=== PATIENT | male | born 1950 | race Caucasian/White ===

== ENCOUNTER → 2025-03-28 10:47 | Outpatient (REF) | payer OTHER, SELFPAY | LOC: PAVMRI 10:47 | PROVIDERS: ATTENDING PHYSICIAN Nurse Practitioner Gerontology; FAMILY PHYSICIAN Family Medicine; REFERRING PHYSICIAN Student in an Organized Health Care Education/Training Program | DX: I73.9 Peripheral vascular disease, unspecified (principal) | CPT/HCPCS: 73718 ==